=== PATIENT | female | born 1980 | race Caucasian/White ===

== ENCOUNTER → 2020-04-09 | Outpatient (CLI) | payer BC, OTHER ==
[2020-04-09 16:24] LABS: FREE T4 (FREE THYROXINE) 1.06 NG/DL (0.70-1.48)
== END ==
LOC: LAB 15:25
PROVIDERS: ATTEND Pediatrics
DX: R63.4 Abnormal weight loss (principal)
CPT/HCPCS: 36415; 84439; 84443

== ENCOUNTER → 2020-06-22 | Outpatient (CLI) | payer BC | LOC: LABNPT 08:34 | PROVIDERS: ATTEND Nurse Practitioner Family | DX: Z20.828 Contact with and (suspected) exposure to other viral communicable diseases (principal) | CPT/HCPCS: 87635 ==